=== PATIENT | female | born 1940 | race Caucasian/White ===

== ENCOUNTER 2017-02-18 18:46 | Observation (INO) | payer MEDICARE ==
[2017-02-18 19:13] LABS: Hemoglobin 11.6 gm/dL (12.5-16.0); Mean Cell Volume 90.2 fl (78-100); Mean Corpuscular Hemoglobin 29.9 pg (27-31); Mean Corpuscular Hgb Conc 33.1 g/dl (32-36); Mean Platelet Volume 10.1 fl (6.0-9.5); Platelet Count 389 K/mm3 (150-450); Red Blood Count 3.88 M/mm3 (4.2-5.4); Red Cell Distribution Width 13.7 % (11.5-14.0); White Blood Count 14.8 K/mm3 (4.0-10.5)
[2017-02-18 19:18] LABS: Total Cells Counted 100
[2017-02-18 19:32] LABS: Albumin * 2.8 gm/dl (3.4-5.0); Anion Gap 16.7 mmol/L (6.8-13.8); BUN/Creatinine Ratio 12.4 (9.0-21.6); Bilirubin, Total 0.5 mg/dL (0.0-1.1); Ca. Corrected For Albumin 9.9 mg/dL (8.4-10.2); Calcium * 9.3 mg/dL (7.9-10.9); Carbon Dioxide 23.3 mmol/L (24-32.6); Eosinophil 1 % (0-3); Lymphocyte 10 % (20-51); Monocyte 9 % (0-9); Neutrophil 80 % (42-75); Neutrophil # 11.8 K/mm3 (1.3-6.0); Total Protein 8.1 gm/dL (6.2-8.2)
[2017-02-18 19:33] LABS: Platelet Estimate Normal (NORMAL); RBC Morphology Normal (NORMAL)
[2017-02-18 19:58] LABS: Urine Bilirubin Negative (NEGATIVE); Urine Blood 250 /ul (NEGATIVE); Urine Ketone 5 mg/dL (NEGATIVE); Urine Nitrite Negative (NEGATIVE); Urine Protein 15 mg/dL (NEGATIVE); Urine Specific Gravity 1.015 SP.GR. (1.005-1.010); Urine Urobilinogen Normal (NORMAL); Urine pH 5.5 pH (5.0-7.0)
[2017-02-18 20:14] LABS: Urine Appearance Clear; Urine Bacteria TRACE; Urine Color Yellow; Urine RBC 0-5 /hpf (0-5); Urine WBC 0-5 /hpf (0-5)
--- NOTE | 2017-02-18 20:57 | ERNOTE ---
Trauma/Assault HPI - General Stated Complaint: WEAKNESS, 2 FALLS TODAY Time Seen by Provider: 02/18/17 20:27 Source: patient Exam Limitations: no limitations - Immun/Allergies/Home Medications Immunizations: IMMUNIZATION HX Immunizations Up to Date Yes History of Influenza Vaccine No Hx Pneumococcal Vaccination No Allergies/Adverse Reactions: Allergies No Known Allergies Allergy (Verified 02/18/17 18:55) Home Medications: HOME MEDICATIONS Cholecalciferol (Vitamin D3) [Vitamin D-3] 2,000 unit PO DAILY 06/11/15 [Last Taken Unknown] Levothyroxine Sodium [Synthroid] 75 mcg PO DAILY 06/11/15 [Last Taken Unknown] clonazePAM [Klonopin] 0.5 mg PO HS 06/11/15 [Last Taken Unknown] oxyCODONE HCL [Oxycontin] 10 mg PO QID PRN 06/11/15 [Last Taken Unknown] Ofloxacin [Floxin Otic] 5 drop OT BID #1 btl 06/14/15 [Last Taken Unknown] Colchicine 0.6 mg PO BID #20 tablet 04/06/16 [Last Taken Unknown] Indomethacin 75 mg PO TID PRN #30 capsule.er 04/06/16 [Last Taken Unknown] Sulfamethoxazole/Trimethoprim [Bactrim Ds] 1 tab PO BID 02/18/17 [Last Taken Unknown] - History of Present Illness Narrative: Pt fell this morning when getting something out of the fridge, for no apparent reason. this afternoon she also fell for no apparent reason. She states she has been weak and "not feeling well" for approximately 6 months Location Occurred: Reports: home Pain Location: Reports: other - lower back (chronic) Severity: moderate Modifying Factors - (Worsens): Reports: movement Loss of Consciousness: Reports: no loss of consciousness Associated Symptoms - Trauma: Reports: lightheadedness Review of Systems - Review of Systems Constitutional: Present: See HPI, weakness, fatigue, malaise. Absent: recent illness EYE: Absent: blurred vision, double vision ENT: Absent: nose congestion, nasal drainage Respiratory: Present: shortness of breath. Absent: cough Cardiology: Present: palpitations. Absent: chest pain, syncope Gastrointestinal/Abdominal: Present: nausea, diarrhea - today , constipation - generally, taking stool softeners and exlax Genitourinary: Absent: frequency, pain Musculoskeletal: Present: back pain - chronic Skin: Present: no symptoms reported Neurological: Present: dizziness/light-headedness. Absent: tingling, tremors Endocrine: Present: no symptoms reported Hematologic/Lymphatic: Present: no symptoms reported Psych: Present: no symptoms reported - Patient's Past Medical History Patient History - Medical: Hypothyroidism, UTI'S Patient History - Cardiac/Respiratory: No pertinent hx Patient History - Cancer: Melanoma, Surgical Treatment Patient History - Surgical Procedures: Back Surgery, Cancer Surgery, D & C, Ear Tubes, Hysterectomy Patient History - Other: None LMP (females 10-50): Menopausal - Social History Living Situations: home Abuse History: No History of abuse Psych History: No pertinent hx Alcohol Use: none Drug Use: none - Immunizations Immunizations Up to Date: Yes Hx Pneumococcal Vaccination: No History of Influenza Vaccine: No Physical Exam - Physical Exam General Appearance: Present: wd/wn, alert, no apparent distress Ears, Nose, Throat: Present: normal ENT inspection, normal pharynx Neck: Present: normal inspection, nontender, supple Respiratory: Present: no respiratory distress, no accessory muscle use, lungs clear Cardiovascular/Chest: Present: regular rate, rhythm, no murmur Gastrointestinal/Abdominal: Present: normal bowel sounds, nontender, nondistended Back Exam: Present: normal range of motion, CVA tenderness (R) Extremity Exam: Present: normal inspection, normal range of motion Neurological Exam: Present: alert, oriented, normal mood/affect Skin Exam: Present: normal color - irregular skin color on face. Lymphatic Exam: Present: no adenopathy ED Progress - Results and Orders Patient's Lab Results:: I have reviewed the patient's lab results. Results and Orders: Laboratory Tests 02/18/17 02/18/17 02/18/17 19:10 19:10 19:44 WBC 14.8 H Hgb 11.6 L Hct 35.0 L Plt Count 389 Neutrophils % (Manual) 80 H Sodium 130 L Potassium 5.0 H Chloride 95 L Carbon Dioxide 23.3 L Anion Gap 16.7 H BUN 25 H Creatinine 2.01 H D Est GFR (Non-Af Amer) 26 L D BUN/Creatinine Ratio 12.4 Random Glucose 147 H Calcium 9.3 Total Bilirubin 0.5 AST 30 ALT 24 Alkaline Phosphatase 103 Total Protein 8.1 Albumin 2.8 L Urine Color Yellow Urine Appearance Clear Urine pH 5.5 Ur Specific [place] 1.015 Urine Protein 15 H Urine Glucose (UA) Negative Urine Ketones 5 Urine Blood 250 H Urine Nitrate Negative Urine Bilirubin Negative Prot Sulfosalicylic Acd Negative Urine Urobilinogen Normal Ur Leukocyte Esterase 25 H Urine RBC 0-5 Urine WBC 0-5 Ur Epithelial Cells 0-5 Urine Bacteria Trace Urine Culture Comments No culture indicated - Vital Signs Patient's Vital Signs:: I have reviewed the patient's vital signs. Vital Signs: Vital Signs 02/18/17 02/18/17 02/18/17 18:50 19:13 20:00 Temperature 38.0 C H 36.4 C L 37.8 C H Pulse Rate 98 71 96 Respiratory 16 18 16 Rate Blood Pressure 144/73 156/112 100/77 O2 Sat by Pulse 94 98 96 Oximetry - X-Ray X-Ray #1 X-Ray: chest Interpretation: Reviewed by me X-ray Comments: IMPRESSION: 1. Bibasilar atelectasis versus scarring. 2. Thoracic aortic atherosclerotic disease. 3. Central bronchial wall prominence noted. Correlate clinically for acute or chronic bronchitis or reactive airways disease. Electronically signed by Lalo Mendosa M.D. X-Ray #2 X-Ray: lumbosacral Interpretation: Reviewed by me X-ray Comments: Lumbar 2 View: 6 nonrib-bearing lumbar vertebral bodies are noted, with transitional lumbosacral anatomy with partial lumbarization of the S1 level. To be consistent with a numbering system of the previous study, the very last visible disc space will be designated as the L5-S1 level. There is a slight DEXA convex curvature of the thoracolumbar spine. Pedicles are intact and symmetric. Patient has multiple levels of laminectomy changes of the lower thoracic and lumbar spine. Patient has surgical changes of posterior lumbar fusion at L4-L5 level. Interpediculate distances are normal. No acute compression fracture suggested. Anterior wedging of the L1 level, stable. There is anterolisthesis of L4 on L5, stable. Multilevel disc space narrowing, with endplate degenerative changes throughout the lumbar spine as well as the lower thoracic spine as visualized, overall radiographically stable. Multiple levels of facet joint degenerative changes, also stable. IMPRESSION: 1. No definite acute osseous finding. 2. Stable findings are as above. Electronically signed by Lalo Mendosa M.D.. X-Ray #3 X-Ray: pelvis Interpretation: Reviewed by me X-ray Comments: No definable fracture lucency or cortical discontinuity. Joint spaces are in gross normal alignment without subluxation or dislocation. Degenerative changes of the bilateral hips noted. Surgical changes of the lower lumbar spine noted, grossly stable. Incidental note of degenerative changes of the lumbosacral junction on the left side. Sacroiliac joints are grossly symmetric without diastases. Overlying bowel gas obscures on the bony details of the sacrum. Asymmetric degenerative changes of the right SI joint. Soft tissues are grossly normal. - CT/Ultrasound CT/Ultrasound Narrative: CT abd/ pelvis without contrast: 2.5 cm spiculated subplural noduel in the RLL with surrounding interstitial thickening and groundglass opacities. Infection vs. neoplastic process punctate calcifications in the spleen consistent with old granulomatous disease. gall bladder distended no radioopaque lithiasis or pericholecystic fluid appendix not identified diverticulosis no evidence of diverculitis Bladder unremarkable - Progress/Reassessment Chief Complaint: Fall Progress:: Improved Departure Clinical Impression: Hyperkalemia Pneumonia Qualifiers: Pneumonia type: due to unspecified organism Laterality: right Lung location: lower lobe of lung Qualified Code(s): J18.1 - Lobar pneumonia, unspecified organism - Departure Disposition: [facility] Condition: Fair
--- OUTSIDE RECORDS SUMMARY | 2017-02-18 21:02 | XMS REPORT | Continuity of Care Document ---
:1940 Author Organization [facility] ([facility]) Address [address] [place] [address] Phone [phone] Care Team Providers Name Role Phone Celeste Quesada Primary Care Provider [phone] Source Comments This disclosure is being made pursuant to the Care Everywhere program, applicable federal and state laws, and may not contain all informaitonavailable regarding this patient.[facility] ([facility]) Active Allergies and Adverse Reactions No Known Allergies Current Medications Prescription Sig. Disp. Refills Start Date End Date Status gabapentin 300 mg Take 300 mg by mouth Active capsule at bedtime . oxyCODONE (OxyCONTIN) 10 Take 10 mg by mouth Active mg CR tablet 4 times daily clonazePAM 0.5 mg tablet Take 0.5 mg by mouth Active daily levothyroxine 75 mcg Take 75 mcg by mouth Active tablet every morning before breakfast Active Problems Not on file Social History Tobacco Use Types Packs/Day Years Used Date Never Smoker Smokeless Tobacco: Never Used Alcohol Use Drinks/Week oz/Week Comments No Last Filed Vital Signs Vital Sign Reading Time Taken Blood Pressure 169/93 11/29/2015 10:04 AM [employer] Pulse 56 11/29/2015 10:04 AM [employer] Temperature 36.7 C (98.1 F) 11/29/2015 10:04 AM [employer] Respiratory Rate - - Height 1.6 m (5' 2.99") 11/29/2015 10:04 AM [employer] Weight 78.6 kg (173 lb 4.5 oz) 11/29/2015 10:04 AM [employer] Body Mass Index 30.7 11/29/2015 10:04 AM [employer] Oxygen Saturation - - Plan of Care Health Maintenance Due Date Last Done Comments Hepatitis B Vaccine (1 of 3 - Primary Series) 1940 Tdap Vaccine 1951 Lipid Disorder Screening 1958 Td Vaccine 1958 Mammogram 1980 Colonoscopy 1990 Zoster Vaccine 2000 Osteoporosis Screening (DXA Bone Density) 2005 Pneumococcal Vaccine (1 of 2 - PCV13) 2005 Influenza Vaccine: Seasonal (#1) 04/21/2016 Results from Last 3 Months Not on file
[2017-02-18] MEDS ORDERED: SODIUM POLYSTYRENE SULFON/SORB 15 G/60 ML BTL PO ONE (23:50)
[2017-02-18] MEDS ORDERED: SODIUM POLYSTYRENE SULFON/SORB 15 G/60 ML BTL ONE (23:52)
--- OUTSIDE RECORDS SUMMARY | 2017-02-19 00:37 | XMS REPORT | Continuity of Care Document ---
:1940 Author Organization [facility] ([facility]) Address [address] [place] [address] Phone [phone] Care Team Providers Name Role Phone Celeste Quesada Primary Care Provider [phone] Source Comments This disclosure is being made pursuant to the Care Everywhere program, applicable federal and state laws, and may not contain all informaitonavailable regarding this patient.[facility] ([facility]) Active Allergies and Adverse Reactions No Known [...] Taken Blood Pressure 169/93 11/29/2015 10:04 AM [employer] Pulse 56 11/29/2015 10:04 AM [employer] Temperature 36.7 C (98.1 F) 11/29/2015 10:04 AM [employer] Respiratory Rate - - Height 1.6 m (5' 2.99") 11/29/2015 10:04 AM [employer] Weight 78.6 kg (173 lb 4.5 oz) 11/29/2015 10:04 AM [employer] Body Mass Index 30.7 11/29/2015 10:04 AM [employer] Oxygen Saturation - - Plan of Care [...]
--- NOTE | 2017-02-19 02:24 | HP ---
Chief Complaint - Chief Complaint Date of Service: 02/19/17 Time of Service: 02:24 Chief Complaint: "Weakness, Falling". Source of HPI- Pt; reliable, ER provider report, pt's EMR. History of Present Illness: Mrs. De Souza is a 76-yr-old WF pt of Dr. Celeste Quesada with a PMH of: B 12 Deficiency, HLD, Hypothyroidism, Reflex Sympathetic Dystrophy & Spinal Stenosis - lumbar region. Pt states that she has "been falling a lot lately" and her blames her falls on the narcotics she takes for chronic low back pain. She reports that this morning after getting milk from the refrigerator, she lost balance and fell backwards and landed on her buttocks. She denies her head hitting the surface or object. Then later in the afternoon, she says she fell again at the back porch of her home while attempting to stand up. Her spouse and son chose to bring her to the [facility] ER. She denies feeling dizzy or lightheaded prior to the falls. She feels that her legs are just too weak. She denies fever & chills. She also denies N/V, SOB, Coughing, Abdominal Pain and Chest Pain. She says that she was [facility] and was found to have a UTI. She was started on Bactrim which she is longterm through it. During evaluation at the ED, the lab-work showed elevated WBC of 14,800 with a Left shift and was febrile with a temp of 38.0. The CXR obtained showed some opacities that could be concerning for Pneumonia. The UA was positive for Leukocyte Esterace and urine culture from a prior office visit showed E-coli growth. A CT of the Abdomen/Pelvis had been obtained due to pt's complain of RT flank pain and blood in urine but no renal calculi was found. However there was a 2.5cm nodule noted on the RLL & groundglass opacities which could be concerning for an infection or neoplastic process. Her BMP showed SHANA with BUN/ CR of 25/2.01 and was also hyperkalemic with a level of 5.0. - Patient's Past Medical History Patient History - Medical: Hypothyroidism, UTI'S, Other - Spinal Stenosis, Vitamin B 12 deficiency. Patient History - Cardiac/Respiratory: No pertinent hx, Hyperlipidemia Patient History - Cancer: Melanoma, Surgical Treatment Patient History - Surgical Procedures: Back Surgery, Cancer Surgery, D & C, Ear Tubes, Hysterectomy Patient History - Other: None LMP (females 10-50): Menopausal - Family History Mother Family History - Medical: Anxiety Father Family History - Medical: No pertinent hx Sister Family History - Medical: Anxiety - Social History Living Situations: home Abuse History: No History of abuse Psych History: No pertinent hx Alcohol Use: none Drug Use: none - Immunizations Immunizations Up to Date: Yes Hx Pneumococcal Vaccination: No History of Influenza Vaccine: No Review Of Systems (GEN) - Review of Systems Generalized/Overall Review: Present: Weakness. Absent: Chills, Fever, Malaise, Diaphoresis, Weight loss EENTM: Absent: Eye Pain, Blurred Vision, Tearing, Nose Congestion Respiratory: Absent: Cough, Shortness of Breath, Wheezing Cardiac: Absent: Chest Pain, Edema, Palpitations, Syncope Abdominal: Absent: Nausea, Vomiting, Abdominal Pain, Diarrhea Genitourinary: Absent: Burning, Itching, Urgency Musculoskeletal: Absent: Joint Pain, Back Pain, Joint Swelling Neurological: Present: Emotional Problems, Weakness. Absent: Headache, Anxiety , Depressed, Tingling Skin: Present: Dryness, Bruising. Absent: Lesions Endocrine: Present: Intolerance to Cold. Absent: Increased Hunger, Flushing, Increased Thirst Misc: All systems neg except as marked Immunizations: IMMUNIZATION HX Immunizations Up to Date Yes History of Influenza Vaccine No Hx Pneumococcal Vaccination No Allergies/Adverse Reactions: Allergies Allergy/AdvReac Type Severity Reaction Status Date / Time No Known Allergies Allergy Verified 02/18/17 18:55 Home Medications: HOME MEDICATIONS Cholecalciferol (Vitamin D3) [Vitamin D-3] 2,000 unit PO DAILY 06/11/15 [Last Taken Unknown] Levothyroxine Sodium [Synthroid] 75 mcg PO DAILY 06/11/15 [Last Taken Unknown] clonazePAM [Klonopin] 0.5 mg PO HS 06/11/15 [Last Taken Unknown] oxyCODONE HCL [Oxycontin] 10 mg PO QID PRN 06/11/15 [Last Taken Unknown] Ofloxacin [Floxin Otic] 5 drop OT BID #1 btl 06/14/15 [Last Taken Unknown] Colchicine 0.6 mg PO BID #20 tablet 04/06/16 [Last Taken Unknown] Indomethacin 75 mg PO TID PRN #30 capsule.er 04/06/16 [Last Taken Unknown] Sulfamethoxazole/Trimethoprim [Bactrim Ds] 1 tab PO BID 02/18/17 [Last Taken Unknown] Exam - Exam Vital Signs: Vital Signs - Last Taken Temp 37.1 C 02/18/17 21:48 Pulse 70 02/19/17 01:32 Resp 16 02/19/17 00:08 BP 129/49 02/19/17 00:08 Pulse Ox 94 02/19/17 01:32 Constitutional: Present: Alert, Oriented x3, Cooperative, No distress, Elderly ENT Exam: Present: normal ENT inspection, hearing grossly normal, dry mucous membranes. Absent: nasal congestion, nasal drainage Eye Exam: bilateral eye: normal inspection, PERRL Neck: Present: full range of motion, supple, normal inspection Back Exam: Present: normal inspection, no CVA tenderness Breasts: Present: Exam deferred Respiratory: Present: lungs clear, no accessory muscle use, No wheezing Cardiovascular/Chest: Present: regular rate, rhythm, no chest tenderness, no murmur Abdomen: Present: Normal bowel sounds, soft, nontender /Rectal: Present: Exam deferred Extremity: Present: non-tender, normal inspection, no pedal edema Skin Exam: Present: no cyanosis, cool/dry, other Lymphatic: Present: no adenopathy Neurologic: Present: no motor/sensory deficits, alert, oriented x 3. Absent: dizzy/light-headedness Appearance: Present: appropriate appearance, appropriate insight Eye contact: Present: cooperative, good eye contact, normal speech Diagnostic Studies: Laboratory Results WBC 14.8 K/mm3 (4.0-10.5) H 02/18/17 19:10 RBC 3.88 M/mm3 (4.2-5.4) L 02/18/17 19:10 Hgb 11.6 gm/dL (12.5-16.0) L 02/18/17 19:10 Hct 35.0 % (37.0-47.0) L 02/18/17 19:10 MCV 90.2 fl (78-100) 02/18/17 19:10 MCH 29.9 pg (27-31) 02/18/17 19:10 MCHC 33.1 g/dl (32-36) 02/18/17 19:10 RDW 13.7 % (11.5-14.0) 02/18/17 19:10 Plt Count 389 K/mm3 (150-450) 02/18/17 19:10 MPV 10.1 fl (6.0-9.5) H 02/18/17 19:10 Neutrophils % (Manual) 80 % (42-75) H 02/18/17 19:10 Lymphocytes % (Manual) 10 % (20-51) L 02/18/17 19:10 Monocytes % (Manual) 9 % (0-9) 02/18/17 19:10 Eosinophils % (Manual) 1 % (0-3) 02/18/17 19:10 Neutrophils # (Manual) 11.8 K/mm3 (1.3-6.0) H 02/18/17 19:10 Lymphocytes # (Manual) 1.5 k/mm3 (1.5-3.5) 02/18/17 19:10 Monocytes # (Manual) 1.3 k/mm3 (0.0-1.0) H 02/18/17 19:10 Eosinophils # (Manual) 0.1 k/mm3 (0.0-0.7) 02/18/17 19:10 Platelet Estimate Normal (NORMAL) 02/18/17 19:10 RBC Morphology Normal (NORMAL) 02/18/17 19:10 Sodium 130 mmol/L (132-142) L 02/18/17 19:10 Plasma Sodium 131 mmol/L (130-142) 02/18/17 19:10 Potassium 5.0 mmol/L (3.4-4.6) H 02/18/17 19:10 Chloride 95 mmol/L (97-106) L 02/18/17 19:10 Carbon Dioxide 23.3 mmol/L (24-32.6) L 02/18/17 19:10 Anion Gap 16.7 mmol/L (6.8-13.8) H 02/18/17 19:10 BUN 25 mg/dL (3-23) H 02/18/17 19:10 Creatinine 2.01 mg/dL (0.4-1.4) H D 02/18/17 19:10 Est GFR (Non-Af Amer) 26 mL/min (60-130) L D 02/18/17 19:10 BUN/Creatinine Ratio 12.4 (9.0-21.6) 02/18/17 19:10 Random Glucose 147 mg/dL (70-110) H 02/18/17 19:10 Calcium 9.3 mg/dL (7.9-10.9) 02/18/17 19:10 Calcium Adj for Albumin 9.9 mg/dL (8.4-10.2) 02/18/17 19:10 Total Bilirubin 0.5 mg/dL (0.0-1.1) 02/18/17 19:10 AST 30 U/L (0-48) 02/18/17 19:10 ALT 24 U/L (19-67) 02/18/17 19:10 Alkaline Phosphatase 103 U/L (50-170) 02/18/17 19:10 Total Protein 8.1 gm/dL (6.2-8.2) 02/18/17 19:10 Albumin 2.8 gm/dl (3.4-5.0) L 02/18/17 19:10 Urine Color Yellow 02/18/17 19:44 Urine Appearance Clear 02/18/17 19:44 Urine pH 5.5 pH (5.0-7.0) 02/18/17 19:44 Ur Specific [place] 1.015 SP.GR. (1.005-1.010) 02/18/17 19:44 Urine Protein 15 mg/dL (NEGATIVE) H 02/18/17 19:44 Urine Glucose (UA) Negative mg/dL (NEGATIVE) 02/18/17 19:44 Urine Ketones 5 mg/dL (NEGATIVE) 02/18/17 19:44 Urine Blood 250 /ul (NEGATIVE) H 02/18/17 19:44 Urine Nitrate Negative (NEGATIVE) 02/18/17 19:44 Urine Bilirubin Negative mg/dl (NEGATIVE) 02/18/17 19:44 Prot Sulfosalicylic Acd Negative mg/dL (0) 02/18/17 19:44 Urine Urobilinogen Normal EU/dl (NORMAL) 02/18/17 19:44 Ur Leukocyte Esterase 25 /ul (NEGATIVE) H 02/18/17 19:44 Urine RBC 0-5 /hpf (0-5) 02/18/17 19:44 Urine WBC 0-5 /hpf (0-5) 02/18/17 19:44 Ur Epithelial Cells 0-5 /hpf (0-5) 02/18/17 19:44 Urine Bacteria Trace (NONE) 02/18/17 19:44 Urine Culture Comments No culture indicated 02/18/17 19:44 Assessment/Plan - Assessment/Plan (1) Pneumonia Assessment: Pt was noted to be febrile with a temp of 38.0, had elevated WBC of 14,800 & she reported weakness and falls. She did not have the typical signs of Pneumonia involving SOB, Coughing or obvious Infiltrates or consolidation on the CXR. However, given the fact that Pneumonia symptoms can be subtle in the Elderly, it would be beneficial to treat as such. Will cover with Rocephin and Azithromycin until culture result, [place] q 2 hrs, check Urine legionella and Strep Ag. Urine. CBC in am. Problem: Acute Qualifiers: Pneumonia type: due to unspecified organism Laterality: right Lung location: lower lobe of lung Qualified Code(s): J18.1 - Lobar pneumonia, unspecified organism (2) SHANA (acute kidney injury) Assessment: Pt is noted have BUN/CR of 25/2.01 and is likely pre- renal due to dehydration from infection. Her baseline is usually in the NR. Will hydrate with IVF and encourage liquid intake. BMP in am Problem: Acute (3) Dehydration Assessment: Noted with BUN/CR of 25/2.01, Hyponatremia, hyperkalemia, weakness, falls. IVF hydration. BMP in am. Problem: Acute (4) UTI (urinary tract infection) Assessment: UTI diagnosed on 02/12 and she was started on Bactrim. UC showed growth of E- coli which is sensitive to bactrim. However, due to concerns for Pneumonia, will hold Bactrim and start Rocephin which will cover for both infections. Problem: Acute (5) Hyperkalemia Assessment: Hyperkalemia Likely due to decreased excretion from SHANA. Pt was given Kayexalate at the ED. Will hydrate with IVF to help restore Kidney function. Check BMP in am Problem: Acute (6) Generalized weakness Assessment: Will involve PT/OT for strengthening. Encourage ambulation. Problem: Acute
[2017-02-19] MEDS ORDERED: NORMAL SALINE 1,000 ML IV PRN (02:27)
[2017-02-19] MEDS ORDERED: SULFAMETHOXAZOLE/TRIMETHOPRIM 1 TAB TABLET PO SCH (02:30)
[2017-02-19] MEDS ORDERED: INDOMETHACIN 25 MG CAPSULE PO PRN (02:35)
[2017-02-19] MEDS: AZITHROMYCIN 500 MG in DEXTROSE 5 % IN WATER 250 ML IV SCH ×2 (04:52)
[2017-02-19 05:34] LABS: Hematocrit 30.6 % (37.0-47.0); Hemoglobin 9.8 gm/dL (12.5-16.0); Mean Cell Volume 90.8 fl (78-100); Mean Corpuscular Hemoglobin 29.1 pg (27-31); Mean Platelet Volume 11.6 fl (6.0-9.5); Neutrophil # 10.1 K/mm3 (1.3-6.0); Neutrophil % 76.4 % (42-75.0); Platelet Count 298 K/mm3 (150-450); Red Blood Count 3.37 M/mm3 (4.2-5.4); Red Cell Distribution Width 13.5 % (11.5-14.0); White Blood Count 13.2 K/mm3 (4.0-10.5)
[2017-02-19 05:43] LABS: BUN/Creatinine Ratio 14.2 (9.0-21.6); Calcium * 8.6 mg/dL (7.9-10.9); Carbon Dioxide 26.2 mmol/L (24-32.6); Estimated Creat Clear 25.5; Potassium 4.2 mmol/L (3.4-4.6)
[2017-02-19] MEDS: LEVOTHYROXINE SODIUM 75 MCG TABLET PO SCH (07:30)
[2017-02-19] MEDS ORDERED: COLCHICINE 0.6 MG TABLET PO SCH (09:00)
[2017-02-19] MEDS ORDERED: diphenhydrAMINE HCL 50 MG CAPSULE PO PRN (09:05)
[2017-02-19] MEDS: OFLOXACIN 50 DROP BTL OT SCH ×2 (09:45→20:47)
[2017-02-19] MEDS: CHOLECALCIFEROL 1,000 UNIT CAPSULE PO SCH (09:45)
[2017-02-19 13:17] LABS: Iron 13 mcg/dL (35-120); Transferrin Sat. (% Sat.) 8 % (15-55)
[2017-02-19 13:42] LABS: Folate 6.8 ng/mL (8.6-58.9); T4 Free * 1.42 ng/dL (0.76-1.46); TSH * 0.514 uIU/mL (0.358-3.74)
[2017-02-19] MEDS: NORMAL SALINE 1,000 ML IV PRN ×2 (13:43→20:48)
[2017-02-19] MEDS ORDERED: clonazePAM 0.5 MG TABLET PO SCH (21:00)
[2017-02-20 05:36] LABS: Hematocrit 28.9 % (37.0-47.0); Hemoglobin 9.4 gm/dL (12.5-16.0); Mean Cell Volume 90.6 fl (78-100); Mean Corpuscular Hemoglobin 29.5 pg (27-31); Mean Corpuscular Hgb Conc 32.5 g/dl (32-36); Mean Platelet Volume 10.3 fl (6.0-9.5); Platelet Count 360 K/mm3 (150-450); Red Blood Count 3.19 M/mm3 (4.2-5.4); Red Cell Distribution Width 13.5 % (11.5-14.0); White Blood Count 13.8 K/mm3 (4.0-10.5)
[2017-02-20 05:56] LABS: Anion Gap 12.7 mmol/L (6.8-13.8); BUN/Creatinine Ratio 12.7 (9.0-21.6); Calcium * 8.3 mg/dL (7.9-10.9); Carbon Dioxide 24.6 mmol/L (24-32.6); Estimated Creat Clear 31.4; Potassium 4.3 mmol/L (3.4-4.6)
[2017-02-20] MEDS: NORMAL SALINE 1,000 ML IV PRN (05:56)
[2017-02-20] MEDS: AZITHROMYCIN 500 MG in DEXTROSE 5 % IN WATER 250 ML IV SCH ×2 (05:56)
[2017-02-20 06:32] VITALS: BP 120/43
[2017-02-20] MEDS: LEVOTHYROXINE SODIUM 75 MCG TABLET PO SCH (06:58)
--- NOTE | 2017-02-20 08:22 | DS ---
(1) SHANA (acute kidney injury) Problem: Resolved (2) Dehydration Problem: Resolved (3) Generalized weakness Problem: Chronic (4) Hyperkalemia Problem: Resolved (5) Pneumonia Problem: Suspected Qualifiers: Pneumonia type: due to unspecified organism Laterality: right Lung location: lower lobe of lung Qualified Code(s): J18.1 - Lobar pneumonia, unspecified organism Description of Stay: ADMISSION DATE: 02/19/2017 DISCHARGE DATE: 02/20/2017 ADMISSION HPI BY RUDOLPH VIVAS: Mrs. De Souza is a 76-yr-old WF pt of Dr. Celeste Quesada with a PMH of: B 12 Deficiency, HLD, Hypothyroidism, Reflex Sympathetic Dystrophy & Spinal Stenosis - lumbar region. Pt states that she has "been falling a lot lately" and her blames her falls on the narcotics she takes for chronic low back pain. She reports that this morning after getting milk from the refrigerator, she lost balance and fell backwards and landed on her buttocks. She denies her head hitting the surface or object. Then later in the afternoon, she says she fell again at the back porch of her home while attempting to stand up. Her spouse and son chose to bring her to the [facility] ER. She denies feeling dizzy or lightheaded prior to the falls. She feels that her legs are just too weak. She denies fever & chills. She also denies N/V, SOB, Coughing, Abdominal Pain and Chest Pain. She says that she was recently seen at the [facility] and was found to have a UTI. She was started on Bactrim which she is snf through it. During evaluation at the ED, the lab-work showed elevated WBC of 14,800 with a Left shift and was febrile with a temp of 38.0. The CXR obtained showed some opacities that could be concerning for Pneumonia. The UA was positive for Leukocyte Esterace and urine culture from a prior office visit showed E-coli growth. A CT of the Abdomen/Pelvis had been obtained due to pt's complain of RT flank pain and blood in urine but no renal calculi was found. However there was a 2.5cm nodule noted on the RLL & groundglass opacities which could be concerning for an infection or neoplastic process. Her BMP showed SHANA with BUN/ CR of 25/2.01 and was also hyperkalemic with a level of 5.0. PROBLEM BASED HOSPITAL COURSE: Frequent Falls -Differential diagnosis includes: *Polypharmacy: Although the patient states there have been no recent changes in her medications and that she has been on oxycontin for 20+ years, she is on multiple medications that can increase her fall risk including gabapentin, klonopin, oxycontin, indomethacin and vesicare. I have recommended to the patient that she meet with her PCP and specialists to discuss and determine if all these medications are absolutely necessary or not. *Infection: UA unremarkable for infection. She was recently found to have a urinary tract infection secondary to Escherichia coli after evaluation at the walk-in clinic on 02/12/2017. She was prescribed a 10 day course of Bactrim DS. It is unclear why the patient was given a 10 day course as a three- day course and possibly a 5 day course at most would have been adequate. It is possible that the Bactrim could have caused increased confusion and falls. Bactrim has been discontinued and there is no further antibiotic treatment necessary for her recently diagnosed UTI. Clinic records indicate that the patient has a history of frequent UTIs and follows with urology. Possible RLL pneumonia as reported on her CT. Patient treated with Rocephin and azithromycin during her admission and then she was transitioned to Levaquin the AM of discharge and instructed to complete 6 additional days of antibiotics. *Vitamin/Electrolyte abnormalities: It appears that the patient has a history of vitamin B12 deficiency; however, she is not currently on any B12 supplementation and her vitamin B12 level has not been checked since 2011 as far as I can tell. Patient also has a history of vitamin D deficiency and is on cholecalciferol 2000 units daily at home. Both vitamin B12 level and vitamin D level checked during admission. *Hypothyroidism: Patient has a history of hypothyroidism and is on treatment with Synthroid. After reviewing the patients clinic records, it does not appear her thyroid blood tests have been checked in over a year. TSH and free T4 were checked during her admission. -PT/OT evaluation and treatment during admission. Consider outpatient referral for ongoing physical therapy evaluation and treatment. SHANA on CKD - RESOLVED -Baseline creatinine around 1.3 -SHANA on admission was most likely secondary to intravascular volume depletion related to poor PO intake. Follow-up creatinine level after IV fluid hydration shows improvement and her creatinine returned to baseline on the day of discharge. Leukocytosis -Likely secondary to right lower lobe pneumonia -Blood cultures NGTD -PCP can consider rechecking a CBC in 1-2 weeks to monitor for resolution Right lower lobe nodular opacity -Incidental finding on the CT of the abdomen and pelvis without contrast that was completed in the emergency department. Radiology report states nodular opacities of the right lower lobe posterior basal segment with surrounding areas of interstitial prominence and groundglass opacities. Differential diagnosis includes infection versus malignancy. Recommend clinical follow-up and evaluation. Recommend chest CT evaluation in 1-3 months to document resolution. -Antibiotic treatment as discussed above -Recommend that PCP check a chest CT with contrast as an outpatient in 1-3 months as recommended by the radiologist Possible pancreatic lesion -Again, incidental finding on the CT of the abdomen and pelvis without contrast that was completed in the emergency department. Radiology report states questionable focal enlargement of the distal body/tail of the pancreas. Consider further evaluation by pancreas protocol contrast enhanced CT versus MRI examination of the abdomen to rule out a possible parenchymal lesion. -This will need follow-up imaging as an outpatient by her PCP Normocytic anemia -Patients hemoglobin on 12/17/2016 when checked in the clinic was 12.0. Otherwise, all other blood work prior to that shows a normal hemoglobin level. B12, folate and iron studies were completed during her admission. -Drop in hemoglobin from admission is most likely secondary to dilution related to aggressive IV fluid hydration. No signs of active bleeding. Iron Deficiency -Patient started on iron supplementation with ferrous sulfate 325mg PO BID with meals. She was also given a prescription for Senna-S to hopefully avoid any possible constipation that can occur with oral iron. -Unsure if patient is up to date on with screening colonoscopies. If not, she would likely benefit from referral for a colonoscopy. Will defer to PCP to determine if this is necessary. -Recommend rechecking iron studies in ~3 months. Folate Deficiency -Patient started on folic acid 1mg daily. Recommend rechecking folate level in ~3 months. Hyperkalemia - Resolved -Elevated potassium level on admission secondary to SHANA -Follow-up BMP after IV fluid hydration and Kayexalate in the emergency department shows potassium level now within normal limits CHRONIC MEDICAL CONDITIONS: Vitamin B12 deficiency: It appears that the patient has a history of vitamin B12 deficiency; however, she is not currently on any B12 supplementation and her vitamin B12 level has not been checked since 2011 as far as I can tell. Vitamin B12 level checked during her admission and was WNL. Vitamin D deficiency: Patient also has a history of vitamin D deficiency and is on cholecalciferol 2000 units daily at home. Vitamin D level checked during her admission and the results were still pending at the time of discharge so this will need to be followed up on by her PCP. Hypothyroidism: Continue current dose of Synthroid. TSH and FT4 WNL. Chronic pain syndrome, chronic back pain, lumbar spinal stenosis, complex regional pain syndrome: We are in a tough situation with her medications as it is possible that medications could be increasing her fall risk and causing falls. However, she has been on narcotics for many years so I would not recommend discontinuing all narcotics at this time. As discussed above, patient will need to discuss this further with her PCP and specialists. Gout: The patient was evaluated in the walk-in clinic for right foot pain back in November 2016 and it was felt that it was possible she was having a gout attack and was started on indomethacin at that time. Follow-up with her primary care provider, lab work was ordered which revealed a normal uric acid level at 6.0 and elevated inflammatory markers with an ESR of 27 and a CRP of 1.8. The patient was prescribed a Medrol Dosepak at that time. Colchicine and indomethacin discontinued. Continue allopurinol. CKD Stage 3: Baseline creatinine around 1.3. There are multiple concerns that need to be further discussed and addressed by the patient's PCP. Please see underlined sections above for details. FOLLOW-UP APPOINTMENTS: PCP, Dr. Quesada, within 1 week NEW OR CHANGED MEDICATIONS: -Levaquin 750mg PO daily X 6 days -Folic Acid 1mg PO daily -Ferrous Sulfate 325mg PO BID with meals -Senna-S 1 tablet PO BID (hopefully will help with possible constipation from iron) DISCONTINUED MEDICATIONS: -Indomethacin 75mg PO TID -Cochicine 0.6mg PO BID -Bactrim DS -Vesicare RADIOLOGY REPORTS: Hip and pelvis x-ray on 02/18/2017: No acute fracture or dislocation. No definable fracture lucency or cortical discontinuity. Joint spaces are in gross normal alignment without subluxation or dislocation. Degenerative changes of the bilateral hips noted. Surgical changes of the lower lumbar spine noted, grossly stable. Incidental note of degenerative changes of the lumbosacral junction on the left side. Sacroiliac joints are grossly symmetric without diastases. Overlying bowel gas obscures on the bony details of the sacrum. Asymmetric degenerative changes of the right SI joint. Soft tissues are grossly normal. Lumbar spine x-ray on 02/18/2017: No definite acute osseous finding. Single view chest x-ray on 02/18/2017: Hypoinflated lungs. Linear propensities of the lung bases suggestive of scarring or atelectasis. No definite consolidation. Pulmonary vasculature is normal. No pneumothorax or pleural fluid collections apparent. Cardiac size within normal limits. Tortuosity of the thoracic aorta with vascular calcifications noted. Thoracic aortic atherosclerotic disease. Central bronchial wall prominence suggested at the hilar structures bilaterally. Correlate clinically for acute or chronic bronchitis or reactive airway disease. Trachea is in normal position given patient positioning. Osseous structures are grossly intact. Degenerative changes of the thoracolumbar spine and bilateral shoulders noted. Partially visualized hardware within the lower cervical spine from previous surgery. CT of the abdomen and pelvis without contrast on 02/18/2017: No evidence of renal stones or obstructive uropathy. Nodular opacity of the right lower lobe posterior basal segment with surrounding areas of interstitial prominence and groundglass opacities. Differential diagnosis includes infection versus malignancy. Recommend clinical follow-up and evaluation. Recommend chest CT evaluation in 1-3 months to document resolution. Questionable focal enlargement of the distal body/tail of the pancreas. Consider further evaluation by pancreas protocol contrast enhanced CT versus MRI examination of the abdomen to rule out a possible parenchymal lesion. Procedures Performed: none Results and Findings: Laboratory Tests 02/18/17 02/18/17 02/18/17 19:10 19:10 19:44 WBC 14.8 H Hgb 11.6 L Hct 35.0 L Sodium 130 L Plasma Sodium 131 Potassium 5.0 H Chloride 95 L Carbon Dioxide 23.3 L Anion Gap 16.7 H BUN 25 H Creatinine 2.01 H D Est GFR (Non-Af Amer) 26 L D BUN/Creatinine Ratio 12.4 Random Glucose 147 H Calcium 9.3 Calcium Adj for Albumin 9.9 Iron TIBC Transferrin % Sat Total Bilirubin 0.5 AST 30 ALT 24 Alkaline Phosphatase 103 Total Protein 8.1 Albumin 2.8 L Vitamin B12 Folate Procalcitonin TSH Free T4 Urine Color Yellow Urine Appearance Clear Urine pH 5.5 Ur Specific [place] 1.015 Urine Protein 15 H Urine Glucose (UA) Negative Urine Ketones 5 Urine Blood 250 H Urine Nitrate Negative Urine Bilirubin Negative Prot Sulfosalicylic Acd Negative Urine Urobilinogen Normal Ur Leukocyte Esterase 25 H Urine RBC 0-5 Urine WBC 0-5 Ur Epithelial Cells 0-5 Urine Bacteria Trace 02/19/17 02/19/17 02/19/17 05:29 12:43 12:43 WBC 13.2 H Hgb 9.8 L Hct 30.6 L Sodium Plasma Sodium Potassium Chloride Carbon Dioxide Anion Gap BUN Creatinine Est GFR (Non-Af Amer) BUN/Creatinine Ratio Random Glucose Calcium Calcium Adj for Albumin Iron 13 L TIBC 168 L Transferrin % Sat 8 L Total Bilirubin AST ALT Alkaline Phosphatase Total Protein Albumin Vitamin B12 409 Folate 6.8 L Procalcitonin TSH 0.514 Free T4 1.42 Urine Color Urine Appearance Urine pH Ur Specific [place] Urine Protein Urine Glucose (UA) Urine Ketones Urine Blood Urine Nitrate Urine Bilirubin Prot Sulfosalicylic Acd Urine Urobilinogen Ur Leukocyte Esterase Urine RBC Urine WBC Ur Epithelial Cells Urine Bacteria 02/19/17 02/20/17 02/20/17 12:43 05:33 05:33 WBC 13.8 H Hgb 9.4 L Hct 28.9 L Sodium 139 Plasma Sodium 139 Potassium 4.3 Chloride 106 Carbon Dioxide 24.6 Anion Gap 12.7 BUN 16 Creatinine 1.26 Est GFR (Non-Af Amer) 44 L D BUN/Creatinine Ratio 12.7 Random Glucose 122 H Calcium 8.3 Calcium Adj for Albumin Iron TIBC Transferrin % Sat Total Bilirubin AST ALT Alkaline Phosphatase Total Protein Albumin Vitamin B12 Folate Procalcitonin 0.15 TSH Free T4 Urine Color Urine Appearance Urine pH Ur Specific [place] Urine Protein Urine Glucose (UA) Urine Ketones Urine Blood Urine Nitrate Urine Bilirubin Prot Sulfosalicylic Acd Urine Urobilinogen Ur Leukocyte Esterase Urine RBC Urine WBC Ur Epithelial Cells Urine Bacteria Discharge Disposition: Home self care Disposition: Home self-care Condition: Stable Discharge Activity: Activity as tolerated Discharge Diet: General/regular food, Resume usual diet Referrals: Celeste Quesada MD [Primary Care Provider] - Problem Oriented Discharge Instructions to Patient/Family: Community-Acquired Pneumonia, Adult, [id number] Additional Patient Instructions (free text): Follow-up with PCP, Dr. Quesada, within 1 week on 02-27-17 @ 10:30am. Prescriptions (Any new or edited meds): Ferrous Sulfate [Iron] 325 mg PO BIDWM #60 capsule.er Folic Acid 1 mg PO DAILY #30 tablet Levofloxacin [Levaquin] 750 mg PO DAILY #6 tablet Sennosides/Docusate Sodium [Senna-S Tablet] 1 each PO BID PRN #60 tablet PRN Reason: Constipation Complete Home Medications List: Complete Home Medication List: Cholecalciferol (Vitamin D3) [Vitamin D3] 2,000 unit PO DAILY 06/11/15 Levothyroxine Sodium [Synthroid] 75 mcg PO DAILY 06/11/15 clonazePAM [Klonopin] 0.5 mg PO HS 06/11/15 oxyCODONE HCL [Oxycontin] 10 mg PO QID PRN 06/11/15 Allopurinol [Zyloprim] 100 mg PO DAILY 02/19/17 Gabapentin 300 mg PO TID 02/19/17 Lidocaine [Lidoderm 5%] 1 patch TP DAILY 02/19/17 Ferrous Sulfate [Iron] 325 mg PO BIDWM #60 capsule.er 02/20/17 Folic Acid 1 mg PO DAILY #30 tablet 02/20/17 Levofloxacin [Levaquin] 750 mg PO DAILY #6 tablet 02/20/17 Sennosides/Docusate Sodium [Senna-S Tablet] 1 each PO BID PRN #60 tablet
[2017-02-20] MEDS ORDERED: ALLOPURINOL 100 MG TABLET PO SCH (09:00)
[2017-02-20] MEDS: OFLOXACIN 50 DROP BTL OT SCH (09:01)
[2017-02-20] MEDS: CHOLECALCIFEROL 1,000 UNIT CAPSULE PO SCH (09:03)
[2017-02-20] MEDS: LIDOCAINE 1 PATCH ADH..PATCH TP SCH ×2 (09:03→09:04)
[2017-02-21 01:34] LABS: Vitamin D, 25-OH, D3 35 ng/mL
== END 2017-02-20 10:06 | disposition home or self-care (01) ==
LOC: ER 18:46 → MS 02-19 00:30
PROVIDERS: ADMIT Nurse Practitioner; ATTEND Internal Medicine
DX: N17.8 Other acute kidney failure (principal); E86.0 Dehydration; E87.5 Hyperkalemia; J18.9 Pneumonia, unspecified organism; D64.9 Anemia, unspecified; D50.9 Iron deficiency anemia, unspecified; E53.8 Deficiency of other specified B group vitamins; D51.9 Vitamin B12 deficiency anemia, unspecified; E03.9 Hypothyroidism, unspecified; N18.3 Chronic kidney disease, stage 3 (moderate); G89.4 Chronic pain syndrome
CPT/HCPCS: 36415; 71010; 72100; 73502; 74176; 80048; 80053; 81001; 82306; 82607; 82746; 83540; 83550; 84145; 84439; 84443; 85025; 85027; 87040; 87086; 87449; 96361; 96365; 96367; 96376; 97110; 97116; 97161; 97165; 99284; G0378; G8978; G8979; G8980; G8987; G8988; G8989

== ENCOUNTER 2017-03-02 09:12 | Emergency (ER) | payer MEDICARE ==
--- NOTE | 2017-03-02 10:11 | ERNOTE ---
Date of Service: 03/02/17 Time Seen by Provider: 03/02/17 10:10 Stated Complaint: SICK Presenting Symptoms:: other - Not feeling well Source: patient, family, RN notes reviewed, past records Exam Limitations: no limitations Immunizations: IMMUNIZATION HX Immunizations Up to Date Yes History of Influenza Vaccine No Hx Pneumococcal Vaccination No Allergies/Adverse Reactions: Allergies No Known Allergies Allergy (Verified 03/02/17 09:37) Home Medications: HOME MEDICATIONS Cholecalciferol (Vitamin D3) [Vitamin D3] 2,000 unit PO DAILY 06/11/15 [Last Taken Unknown] Levothyroxine Sodium [Synthroid] 75 mcg PO DAILY 06/11/15 [Last Taken Unknown] clonazePAM [Klonopin] 0.5 mg PO HS 06/11/15 [Last Taken Unknown] oxyCODONE HCL [Oxycontin] 10 mg PO QID PRN 06/11/15 [Last Taken Unknown] Allopurinol [Zyloprim] 100 mg PO DAILY 02/19/17 [Last Taken Unknown] Lidocaine [Lidoderm 5%] 1 patch TP DAILY 02/19/17 [Last Taken Unknown] Ferrous Sulfate [Iron] 325 mg PO BIDWM #60 capsule.er 02/20/17 [Last Taken Unknown] Folic Acid 1 mg PO DAILY #30 tablet 02/20/17 [Last Taken Unknown] Sennosides/Docusate Sodium [Senna-S Tablet] 1 each PO BID PRN #60 tablet [Last Taken Unknown] Clotrimazole [Mycelex Bridgette] 10 mg MM DAILY 03/02/17 [Last Taken Unknown] Fluconazole [Diflucan] 100 mg PO DAILY #10 tab 03/02/17 [Last Taken Unknown] - History of Present Ilness Narrative: 76 y/o female brought to the ED by her for continuing to not feel well after being discharged from the hospital on 02/26/17. She was being treated for pneumonia with Levaquin. She believes she is finished with this. She saw her PCP for follow up on 02/27/17. Her CXR showed a RLL infiltrate concerning for pneumonia and her WBC was 21,000. She was treated for thrush at that time with clotrimazole lozenges. She reports ongoing severe mouth pain and states the lozenges are upsetting her stomach. She states that she is not coughing much, but reports that she has not been throughout the illness since it began. She does report increased edema in her ankles and feet that is worse on the right side. Associated Symptoms: Reports: sore throat, muscle aches. Denies: chest pain/ soreness, cough, shortness of breath, nasal congestion, nasal drainage, lightheadedness, headache, fever/chills Prior Treatment: Reports: recently seen, treated by physician, recently hospitalized. Denies: currently on antibiotics Review of Systems - Review of Systems Constitutional: Present: recent illness, fatigue, malaise, decreased activity level EYE: Present: no symptoms reported ENT: Present: See HPI Respiratory: Present: See HPI Cardiology: Present: See HPI Gastrointestinal/Abdominal: Present: nausea, abdominal pain, eating less, drinking less. Absent: vomiting, diarrhea, constipation Genitourinary: Absent: frequency, dysuria Musculoskeletal: Present: back pain, muscle pain. Absent: joint pain, joint swelling Skin: Absent: rash, lesions, lumps, change in color Neurological: Present: See HPI Endocrine: Present: no symptoms reported Hematologic/Lymphatic: Present: no symptoms reported Psych: Present: no symptoms reported - Patient's Past Medical History Patient History - Medical: Chronic Pain - Lumbar spinal stenosis, Hypothyroidism , UTI'S, Other - B12 deficiency Patient History - Cardiac/Respiratory: Hyperlipidemia Patient History - Cancer: Melanoma, Surgical Treatment Patient History - Surgical Procedures: Back Surgery, Cancer Surgery, Colonoscopy , D & C, Ear Tubes, Hysterectomy, Other - Thyroidectomy Patient History - Other: None LMP (females 10-50): Menopausal - Family History Mother Family History - Medical: Anxiety Father Family History - Medical: No pertinent hx Sister Family History - Medical: Anxiety - Social History Living Situations: home Abuse History: No History of abuse Psych History: No pertinent hx Does anyone smoke in the home?: No Smoking Status: Never smoker Alcohol Use: none Drug Use: none - Immunizations Immunizations Up to Date: Yes Hx Pneumococcal Vaccination: No History of Influenza Vaccine: No Physical Exam - Physical Exam General Appearance: Present: wd/wn, alert, no apparent distress, other - Appears uncomfortable Eye Exam: Normal inspection: bilateral Ears, Nose, Throat: Present: pharyngeal erythema, dry mucous membranes - lips dry and cracked, other - severe oral candidiasis. Absent: pharyngeal swelling Neck: Present: normal inspection, nontender, supple, full range of motion Respiratory: Present: no respiratory distress, no accessory muscle use, crackles - bibasilar, barely audible Cardiovascular/Chest: Present: regular rate, rhythm, no murmur, normal peripheral pulses Peripheral Pulses: N=norm/S=strong/W=weak/B=bound/A=absent: Dorsalis-pedis (R): Strong, Dorsalis-pedis (L): Strong Gastrointestinal/Abdominal: Present: nondistended, soft, tenderness - mild, diffuse Extremity Exam: Present: pedal edema - bilateral, right greater than left, extremity edema - right ankle and lower leg, 3+. Absent: calf tenderness Neurological Exam: Present: alert, oriented, no motor/sensory deficits, other - depressed appearing. Absent: normal mood/affect Skin Exam: Present: warm/dry, pallor ED Progress - Results and Orders Patient's Lab Results:: I have reviewed the patient's lab results. - Vital Signs Patient's Vital Signs:: I have reviewed the patient's vital signs. Vital Signs: Vital Signs 03/02/17 09:35 Temperature 35.7 C L Pulse Rate 66 Respiratory 16 Rate Blood Pressure 125/62 O2 Sat by Pulse 95 Oximetry - X-Ray X-Ray #1 X-Ray: chest Interpretation: Reviewed by me X-ray Comments: COMPARISONS: 02/27/2017 FINDINGS: Chest PA Lateral * Hyperinflated lung volumes. Previously seen infiltrate in the right lung base appears to have radiographically resolved. However, there is increased peripheral lung markings, with reticulation seen at the periphery of the lung bases bilaterally. No definable pneumothorax. Slightly blunted appearance of the costophrenic angle suggests trace bilateral pleural effusions. Mild cardiomegaly, stable. Tortuosity of the thoracic aorta, stable. Trachea is in normal position. Bones show degenerative changes of the spine. IMPRESSION: 1. Increased peripheral lung markings, and basilar reticulations. Consider interstitial edema versus pneumonitis. 2. Trace bilateral pleural effusions. 3. Stable cardiomegaly. Electronically signed by Lalo Mendosa M.D.. - Progress/Reassessment Chief Complaint: Upper Respiratory Symptoms Progress:: Unchanged Plan - Plan Plan: Chest xray no longer shows the infiltrate seen 3 days ago. Discussed possible admit with Dr. Ramirez as patient continues to have an elevated WBC without a clear cause, he recommended that she take the oral antibiotics she was prescribed on 02/27 as she never did pick those up - and then recheck with Dr. Quesada. She could be admitted for failed outpatient treatment at that time if she does not improve. Discussed with Dr. Quesada - recheck scheduled with her in 2 days. I am changing the clotrimazole to fluconazole as well due to lack of improvement in her thrush. Departure - Departure Clinical Impression: Oral candidiasis Leukocytosis Qualifiers: Leukocytosis type: unspecified Qualified Code(s): D72.829 - Elevated white blood cell count, unspecified Disposition: Home Follow Up Needed Condition: Stable Instructions: Thrush, Adult Additional Instructions: Start antibiotics when you pick them up - the Levaquin is once a day and the cefdinir is twice a day You do not need to take the fluconazole (for your mouth infection) again until tomorrow See Dr. Quesada for recheck on Thursday, or return if symptoms worsen before Referrals: Celeste Quesada MD [Primary Care Provider] - 03/04/17 12:45 pm Prescriptions: Fluconazole [Diflucan] 100 mg PO DAILY #10 tab
--- OUTSIDE RECORDS SUMMARY | 2017-03-02 10:19 | XMS REPORT | Continuity of Care Document ---
:1940 Author Organization [facility] ([facility]) Address [address] [place] [address] Phone [phone] Care Team Providers Name Role Phone Celeste Quesada Primary Care Provider [phone] Source Comments This disclosure is being made pursuant to the Care Everywhere program, applicable federal and state laws, and may not contain all informaitonavailable regarding this patient.[facility] ([facility]) Active Allergies and Adverse Reactions No [...] Taken Blood Pressure 169/93 11/29/2015 10:04 AM [employer]EL [employer] MACHINE [employer]PERATOR Pulse 56 11/29/2015 10:04 AM [employer]EWEL [employer]ING MACHINE OPERATOR Temperature 36.7 C (98.1 F) 11/29/2015 10:04 AM J[employer]EL [employer]ING MACHINE OPERATOR Respiratory Rate - - Height 1.6 m (5' 2.99") 11/29/2015 10:04 AM JEWEL [employer]ING MACHINE OPERATOR Weight 78.6 kg (173 lb 4.5 oz) 11/29/2015 10:04 AM JEWEL [employer]ING MACHINE OPERATOR Body Mass Index 30.7 11/29/2015 10:04 AM JEWEL [employer]ING MACHINE OPERATOR Oxygen Saturation - - Plan of Care [...]
[2017-03-02] MEDS ORDERED: NYSTATIN 60 ML BTL PO ONE ×2 (10:28→10:40)
[2017-03-02 10:44] LABS: Hematocrit 31.2 % (37.0-47.0); Hemoglobin 10.5 gm/dL (12.5-16.0); Mean Cell Volume 86.2 fl (78-100); Mean Corpuscular Hgb Conc 33.7 g/dl (32-36); Mean Platelet Volume 9.5 fl (6.0-9.5); Neutrophil # 18.2 K/mm3 (1.3-6.0); Neutrophil % 83.8 % (42-75.0); Platelet Count 393 K/mm3 (150-450); Red Blood Count 3.62 M/mm3 (4.2-5.4); Red Cell Distribution Width 14.2 % (11.5-14.0); White Blood Count 21.7 K/mm3 (4.0-10.5)
[2017-03-02 11:01] LABS: Anion Gap 13.4 mmol/L (6.8-13.8); Bilirubin, Total 0.6 mg/dL (0.0-1.1); Ca. Corrected For Albumin 10.3 mg/dL (8.4-10.2); Carbon Dioxide 27.1 mmol/L (24-32.6); Potassium 4.5 mmol/L (3.4-4.6); Total Protein 7.2 gm/dL (6.2-8.2)
[2017-03-02 11:30] LABS: Urine Bilirubin Negative (NEGATIVE); Urine Blood 250 /ul (NEGATIVE); Urine Ketone Negative (NEGATIVE); Urine Nitrite Negative (NEGATIVE); Urine Protein Negative (NEGATIVE); Urine Specific Gravity 1.015 SP.GR. (1.005-1.010); Urine Urobilinogen Normal (NORMAL)
[2017-03-02 11:36] LABS: Urine Appearance Clear; Urine Bacteria TRACE; Urine Color Yellow; Urine WBC None Seen /hpf (0-5)
[2017-03-02 12:40] LABS: Amylase * 22 U/L (25-115); Lipase 84 U/L (73-393)
[2017-03-02] MEDS ORDERED: FLUCONAZOLE 100 MG TABLET PO ONE (13:06)
[2017-03-02] MEDS ORDERED: FLUCONAZOLE 100 MG TABLET ONE (13:17)
[2017-03-02 13:54] VITALS: BP 145/70
== END 2017-03-02 13:20 | disposition home or self-care (01) ==
LOC: ER 09:12
DX: B37.0 Candidal stomatitis (principal); Z16.39 Resistance to other specified antimicrobial drug; D72.829 Elevated white blood cell count, unspecified; Z85.820 Personal history of malignant melanoma of skin; G89.29 Other chronic pain; E03.9 Hypothyroidism, unspecified; E78.5 Hyperlipidemia, unspecified; E53.8 Deficiency of other specified B group vitamins; Z87.440 Personal history of urinary (tract) infections